=== PATIENT | female | born 1980 | race Caucasian/White ===

== ENCOUNTER 2017-03-10 22:17 | Emergency (ER) | payer OTHER ==
[~2017-03-10] VITALS: Ht 175.3 cm; Wt 73.4 kg
[~2017-03-10 22:17] MED LIST: PARO10TA PO
[2017-03-10 22:20] VITALS: TEMP 36.7; Ht 175.3 cm; Wt 73.4 kg
--- NOTE | 2017-03-10 22:53 | DIAGNOSTIC IMAGING REPORT ---
LEFT HAND MIN 3 VIEWS ROUTINE CLINICAL HISTORY: 36 years-old Female presenting with hand pain. TECHNIQUE: Frontal, oblique, and lateral views of the left hand were obtained. COMPARISON: None. FINDINGS: No acute fracture or malalignment. Regional soft tissues within normal limits. No radiopaque foreign body. IMPRESSION: No acute osseous injury of the right hand. Electronically signed by: Alexandre Ramos M.D. 03/10/2017 10:52 PM Dictated Date/Time: 03/10/2017 10:51 PM
[2017-03-10 23:33] VITALS: BP 122/83; PULSE 75; O2SAT 92
--- NOTE | 2017-03-10 23:53 | EMERGENCY ROOM VISIT NOTE ---
History Report prepared by Bishop: Cali Pastrana Under the Supervision of: Dr. Angelina Conley D.O. First contact with patient: 23:05 Chief Complaint: HAND PAIN/INJURY Stated Complaint: SWOLLEN LEFT HAND History of Present Illness The patient is a 36 year old female who presents to the Emergency Room with complaints of constant pain, ecchymosis, and edema to her left thumb and first finger beginning prior to arrival. She currently rates her discomfort a 6/10 in severity. The patient states that she was playing tug-of-war, and she wrapped the rope around her left hand. She reports that she has been experience pain, edema, and ecchymosis since. The patient notes that she did not take any medications for pain, and she does not want any medications for pain currently. She denies any other injury or pain other than her hand. The patient is left- handed. Source of History: patient Onset: prior to arrival Position: hand (left thumb and first finger) Symptom Intensity: 6/10 Timing: constant Note: Denies any other pain. Review of Systems Patient denies any other injury besides her left hand. Past Medical & Surgical Medical Problems: (1) No Known Active Medical Problems Family History Patient reports no known family medical history. Social History Smoking Status: Never Smoker Marital Status: Housing Status: lives with significant other Current/Historical Medications Scheduled Paroxetine Hcl (Paxil), 10 MG PO HS Allergies Coded Allergies: No Known Allergies (Verified Allergy, Unknown, 09/09/06) Physical Exam Vital Signs Date Time Temp Pulse Resp B/P (MAP) Pulse Ox O2 Delivery O2 Flow Rate FiO2 03/10/17 23:33 75 18 122/83 92 Room Air 03/10/17 22:20 36.7 86 18 149/89 98 Room Air Physical Exam Extremities: No evidence of cyanosis or clubbing. There are easily palpable peripheral pulses. Edema and ecchymosis between the thumb and first finger, and edema noted on the first and second fingers on the dorsal aspect of the left hand. No pain at the wrist, no pain at the anatomical snuffbox. Medical Decision & Procedures ER Provider Diagnostic Interpretation: X-ray results as stated below per interpretation by me and the radiologist: LEFT HAND MIN 3 VIEWS ROUTINE CLINICAL HISTORY: 36 years-old Female presenting with hand pain. TECHNIQUE: Frontal, oblique, and lateral views of the left hand were obtained. COMPARISON: None. FINDINGS: No acute fracture or malalignment. Regional soft tissues within normal limits. No radiopaque foreign body. IMPRESSION: No acute osseous injury of the right hand. Electronically signed by: Alexandre Ramos M.D. 03/10/2017 10:52 PM Dictated Date/Time: 03/10/2017 10:51 PM ED Course 2326: The patient was evaluated in room B09. A complete history and physical examination were performed. The X-Ray results were reviewed with the patient. She verbalized agreement of the treatment plan. The patient was discharged home. Medical Decision The patient is a 36 year old female who presents to the ED with pain to her left thumb and first finger. Differential diagnosis includes fracture to the hand, contusion, or strain. The patient suffered this injury while playing tug-of-war. There is no obvious fractures on x-ray. The patient was encouraged to apply ice and elevate the hand. She can use NSAIDs for pain. Impression Primary Impression: Contusion of left hand Scribe Attestation The scribe's documentation has been prepared under my direction and personally reviewed by me in its entirety. I confirm that the note above accurately reflects all work, treatment, procedures, and medical decision making performed by me. Departure Information Dispostion Home / Self-Care Referrals Yung Lawler D.O. (PCP) Forms HOME CARE DOCUMENTATION FORM, IMPORTANT VISIT INFORMATION Patient Instructions My [facility] [employer] Additional Instructions Rest with the hand elevated and iced. Use ibuprofen for pain. Limit use of the hand Problem Qualifiers Primary Impression: Contusion of left hand Encounter type: initial encounter Qualified Codes: S60.222A - Contusion of left hand, initial encounter
== END 2017-03-10 23:58 | disposition home or self-care (01) ==
LOC: C.EDB 22:18
DX: S60.222A Contusion of left hand, initial encounter (principal); X58.XXXA Exposure to other specified factors, initial encounter; Y93.89 Activity, other specified